=== PATIENT | female | born 1960 ===

== ENCOUNTER → 2020-10-20 11:40 | Outpatient (CLI) | payer OTHER, SELFPAY ==
[2020-10-20 13:45] LABS: COVID19 -Nasal RAPID Negative (Negative)
== END ==
PROVIDERS: Referring Provider Physician Assistant; Visit Provider Physician Assistant
DX: Z20.822 Contact with and (suspected) exposure to COVID-19 (principal); Z01.812 Encounter for preprocedural laboratory examination
CPT/HCPCS: 87635